=== PATIENT | male | born 1930 | race Caucasian/White ===

== ENCOUNTER → 2017-12-20 | Outpatient (CLI) | payer OTHER | LOC: BMCIMAGING 08:46 | PROVIDERS: ATTEND Orthopaedic Surgery | DX: M16.0 Bilateral primary osteoarthritis of hip (principal); M51.36 Other intervertebral disc degeneration, lumbar region ==

== ENCOUNTER → 2017-12-29 | Outpatient (CLI) | payer OTHER | LOC: BMCIMAGING 12:48 | PROVIDERS: ATTEND Orthopaedic Surgery | PROC: BQ111ZZ Fluoroscopy of Left Hip using Low Osmolar Contrast (ICD-10-PCS; principal; 2017-12-29) | DX: M25.552 Pain in left hip (principal) ==

== ENCOUNTER 2018-10-19 09:41 | Inpatient (IN) | payer OTHER | END 2018-10-22 14:59 | disposition home or self-care (01) | LOC: F1N 09:41 → F3N 20:05 ==